=== PATIENT | female | born 1940 | race Caucasian/White ===

== ENCOUNTER 2022-06-17 14:46 | Outpatient (CLI) | payer OTHER | END 2022-06-17 17:08 | disposition home or self-care (01) | LOC: SCA 14:46 | PROVIDERS: ATTEND Internal Medicine | DX: C50.912 Malignant neoplasm of unspecified site of left female breast (principal); Z01.818 Encounter for other preprocedural examination; I51.7 Cardiomegaly | CPT/HCPCS: 93005 ==

== ENCOUNTER 2022-06-28 07:58 | Day surgery (SDC) | payer OTHER ==
[~2022-06-28] VITALS: Ht 152.4 cm; Wt 63.5 kg
[~2022-06-28 07:58] MED LIST: CEFAZOLIN SOD 1 GM in D5W 50 ML IV ONE
[2022-06-28] MEDS ORDERED: LIDOCAINE 1%, 20 ML MDV 20 ML ONE (10:38)
[2022-06-28] MEDS ORDERED: LR 1,000 ML IV.SOLN IV ONE (13:50)
[2022-06-28] MEDS ORDERED: BUPIVACAINE /EPINEPHRINE/PF 0.25% 30 ML VIAL INJ ONE (13:50)
[2022-06-28] MEDS ORDERED: SEVOFLURANE 15 MIN GAS INH ONE (13:50)
[2022-06-28] MEDS ORDERED: PROPOFOL 200MG/ 20ML VIAL (DIPRIVAN) IV ONE (13:50)
[2022-06-28] MEDS ORDERED: DEXAMETHASONE SOD PHOSPHATE 4 MG/ML VIAL IVP ONE (13:50)
[2022-06-28] MEDS ORDERED: NS IRRIG SOLN 1000 ML IR ONE (13:50)
[2022-06-28] MEDS ORDERED: ISOSULFAN BLUE 5 ML VIAL (LYMPHAZURIN) INJ ONE (13:50)
[2022-06-28] MEDS ORDERED: MEPERIDINE HCL/PF 25 MG/ML DISP.SYRIN IVP PRN (14:30)
[2022-06-28] MEDS ORDERED: ACETAMINOPHEN 325 MG TABLET PO ONE (14:30)
[2022-06-28] MEDS ORDERED: ONDANSETRON HCL 4 MG/2 ML VIAL IVP PRN (14:30)
[2022-06-28] MEDS ORDERED: METOCLOPRAMIDE HCL 10 MG/2 ML VIAL IVP PRN (14:30)
[2022-06-28] MEDS ORDERED: MORPHINE 4 MG INJ. 4 MG/ML VIAL IVP PRN (14:30)
[2022-06-28] MEDS ORDERED: HYDROcodone/ACETAMIN 5-325 MG TAB (NORCO/ VICODIN) PO PRN ×2 (15:15)
[2022-06-28] MEDS ORDERED: D5/0.45 NS 1,000 ML IV SCH (15:15)
[2022-06-28] MEDS: MORPHINE 4 MG INJ. 4 MG/ML VIAL ONE ×2 (15:38→15:53)
[2022-06-28] MEDS ORDERED: MORPHINE SULFATE 10 MG/ML VIAL ONE (18:17)
[2022-06-29 08:28] VITALS: BP_SYST 150
== END 2022-06-28 19:10 | disposition home or self-care (01) ==
LOC: SDS 07:58 → SMU 07:58 → SDS 19:10
PROVIDERS: ATTEND Colon & Rectal Surgery
DX: C50.912 Malignant neoplasm of unspecified site of left female breast (principal); I10 Essential (primary) hypertension; I25.10 Atherosclerotic heart disease of native coronary artery without angina pectoris; E03.9 Hypothyroidism, unspecified; E78.5 Hyperlipidemia, unspecified; M19.90 Unspecified osteoarthritis, unspecified site; Z79.899 Other long term (current) drug therapy; Z20.822 Contact with and (suspected) exposure to COVID-19
CPT/HCPCS: 36415 ×2; 19281; 38792; 19301; 38525; 38900; 76098; 88305; 88307; 88329; 88333; 88342; 87426; U0003; A9541; J3490; J0690; J1100; J2001; J2704; J2270 ×2; Q9968; J7060; J7120; 78195